=== PATIENT | male | born 1955 | race Hispanic/Latino ===

== ENCOUNTER 2021-04-26 09:53 | Day surgery (SDC) | payer OTHER ==
[2021-04-26] MEDS ORDERED: NA CHLORIDE 0.9% 1,000 ML ONE (10:46)
[2021-04-26 13:29] VITALS: BP 146/57; TEMP 98; O2SAT 99; BMI 22.8
== END 2021-04-26 12:11 | disposition home or self-care (01) ==
LOC: DS 09:53
PROVIDERS: ATTEND Internal Medicine
DX: C64.9 Malignant neoplasm of unspecified kidney, except renal pelvis (principal); N17.9 Acute kidney failure, unspecified; N18.4 Chronic kidney disease, stage 4 (severe); E83.52 Hypercalcemia
CPT/HCPCS: 96365; 96372; J0897; J7030